=== PATIENT | female | born 1995 | race Two or more races ===

== ENCOUNTER 2022-01-11 16:37 | Emergency (ER) | payer BC ==
[~2022-01-11] VITALS: Ht 162.6 cm; Wt 81.6 kg
[2022-01-11 16:47] VITALS: BP 136/82
--- NOTE | 2022-01-11 18:02 | NUR ---
Patient discharged to home in stable condition. Written and verbal after care instructions given. Patient verbalizes understanding of instruction.
== END 2022-01-11 18:02 | disposition home or self-care (01) ==
LOC: ER 17:15
DX: Z76.0 Encounter for issue of repeat prescription (principal); F41.9 Anxiety disorder, unspecified